=== PATIENT | male | born 1965 | race Caucasian/White ===

== ENCOUNTER 2017-01-28 11:00 | Emergency (ER) | payer BC ==
[~2017-01-28] VITALS: Ht 182.9 cm; Wt 80.2 kg
[2017-01-28 11:05] VITALS: TEMP 36.6; Ht 182.9 cm; Wt 80.2 kg
[2017-01-28] MEDS ORDERED: ONDANSETRON INJ 2 MG/ML 2 ML VIAL IV STA (11:25)
[2017-01-28] MEDS ORDERED: MoRPHine SULFATE 4 MG/ML 1 ML CARP\\VIAL IV PRN (11:30)
[2017-01-28] MEDS ORDERED: SODIUM CHLORIDE 0.9% 1000ML 1,000 ML IV ONE (11:30)
[2017-01-28] MEDS ORDERED: OPTIRAY 320 IV PRN (11:45)
[2017-01-28 12:09] LABS: URINE APPEARANCE CLEAR (CLEAR); URINE BILIRUBIN NEG (NEG); URINE COLOR YELLOW; URINE NITRITE NEG (NEG); URINE PH 6.5 (4.5-7.5); URINE SPECIFIC GRAVITY 1.011 (1.000-1.030); UROBILINOGEN NEG (NEG); ZZUR CULT IF INDIC CLEAN CATCH NO
[2017-01-28 12:27] LABS: MANUAL MICROSCOPIC REQUIRED? NO; REVIEW REQ? NO
[2017-01-28 12:33] LABS: BUN/CREATININE RATIO 11.8 (10-20); CALCIUM 9.4 mg/dl (8.5-10.1); CREATININE 1.2 mg/dl (0.60-1.40); POTASSIUM 4.3 mmol/L (3.5-5.1)
[2017-01-28 12:35] LABS: ALB/GLOB RATIO 1.2 (0.9-2)
[2017-01-28 13:02] LABS: BASO % 0.7 %; BASO ABS # 0.04 K/uL (0-0.2); COMPLETE YES; EOS % 3.6 %; HEMATOCRIT 50.2 % (42-52); IG% 0.2 %; LYMPH % 30.8 %; LYMPH ABS # 1.73 K/uL (1.2-3.4); MEAN CELL VOLUME 90.3 fL (80-100); MEAN CORPUSCULAR HGB CONC 35.5 g/dl (32-36); MEAN PLATELET VOLUME 9.5 fL (7.4-10.4); MONO % 9.3 %; NEUT % 55.4 %; PLATELET COUNT 261 K/uL (130-400); RED BLOOD COUNT 5.56 M/uL (4.7-6.1); WHITE BLOOD COUNT 5.62 K/uL (4.8-10.8)
--- NOTE | 2017-01-28 14:21 | DIAGNOSTIC IMAGING REPORT ---
ABDOMEN AND PELVIS CT WITH IV AND ORAL CONTRAST CT DOSE: 305.67 mGy.cm HISTORY: Right lower quadrant abdominal pain. TECHNIQUE: Multiaxial CT images of the abdomen and pelvis were performed following the use of intravenous and oral contrast. COMPARISON STUDY: None. FINDINGS: The lung bases are clear. The liver, spleen, gallbladder, pancreas, left kidney, and adrenal glands are within normal limits. No bowel wall thickening or obstruction. Normal appendix. A few colonic diverticula. No suspicious lytic or blastic osseous lesions. There is a 4 cm cyst within the upper pole the right kidney. No hydronephrosis. The bladder is unremarkable. IMPRESSION: 1. Normal appendix. 2. No bowel wall thickening or obstruction. 3. Colonic diverticulosis. 4. A 4 cm right renal cyst. Electronically signed by: Kang Liz M.D. 01/28/2017 2:18 PM Dictated Date/Time: 01/28/2017 2:11 PM
[2017-01-28 15:23] VITALS: BP 124/76; PULSE 70; O2SAT 98
--- NOTE | 2017-01-29 07:28 | EMERGENCY ROOM VISIT NOTE ---
History First contact with patient: 11:15 Chief Complaint: ABDOMINAL PAIN Stated Complaint: ABD. PAIN Nursing Triage Summary: Pt presents with RLQ pain that woke him from sleep at 0200. Denies n/v/d. History of Present Illness The patient is a 51 year old male who presents to the Emergency Room with complaints of right lower quadrant abdominal pain that was noted at 2 AM when he awoke from sleep. The patient does not have nausea, vomiting, or diarrhea. He has not had dysuria, hematuria, or flank pain. The patient is usually healthy and does not have a history of abdominal surgeries. No fever or chills. No chest pain or upper abdominal pain. The patient has not taken anything [id number] for his symptoms and has had decreased appetite. He rates his discomfort an 8/10. Review of Systems More than 10 systems were reviewed and otherwise negative with the exception of history of present illness. Past Medical/Surgical History No chronic medical disease Family History No pertinent family history Social History Smoking Status: Never Smoker Housing Status: lives with family Current/Historical Medications No Active Prescriptions or Reported Meds Allergies Coded Allergies: No Known Allergies (Unverified , 01/28/17) Physical Exam Vital Signs Date Time Temp Pulse Resp B/P Pulse Ox O2 Delivery O2 Flow Rate FiO2 01/28/17 15:23 70 18 124/76 98 01/28/17 14:42 74 16 146/92 97 Room Air 01/28/17 12:40 67 16 142/91 100 Room Air 01/28/17 11:05 36.6 69 18 152/92 98 Room Air Pain Rating (0-10): 4.0 Physical Exam VITALS: Vitals are noted on the nurse's note and reviewed by myself. Vital signs stable. GENERAL: Well-developed, well-nourished, white male, who is in no acute distress and resting comfortably. Patient is cooperative with the examination. HEAD: Normocephalic atraumatic. HEART: Regular rate and rhythm without murmurs gallops or rubs. LUNGS: Clear to auscultation bilaterally without wheezes, rales or rhonchi. No retractions or accessory muscle use. ABDOMEN: Positive normal bowel sounds x 4. Soft with positive right lower quadrant tenderness on palpation. No rebound or guarding. No CVA tenderness. MUSCULOSKELETAL: No muscle atrophy, erythema, or edema noted. Full range of motion without joint tenderness in all extremities. Medical Decision & Procedures ER Provider Diagnostic Interpretation: ABDOMEN AND PELVIS CT WITH IV AND ORAL CONTRAST CT DOSE: 305.67 mGy.cm HISTORY: Right lower quadrant abdominal pain. TECHNIQUE: Multiaxial CT images of the abdomen and pelvis were performed following the use of intravenous and oral contrast. COMPARISON STUDY: None. FINDINGS: The lung bases are clear. The liver, spleen, gallbladder, pancreas, left kidney, and adrenal glands are within normal limits. No bowel wall thickening or obstruction. Normal appendix. A few colonic diverticula. No suspicious lytic or blastic osseous lesions. There is a 4 cm cyst within the upper pole the right kidney. No hydronephrosis. The bladder is unremarkable. IMPRESSION: 1. Normal appendix. 2. No bowel wall thickening or obstruction. 3. Colonic diverticulosis. 4. A 4 cm right renal cyst. Laboratory Results 01/28/17 11:40 Red Blood Count 5.56, Mean Corpuscular Volume 90.3, Mean Corpuscular Hemoglobin 32.0, Mean Corpuscular Hemoglobin Concent 35.5, Mean Platelet Volume 9.5, Neutrophils (%) (Auto) 55.4, Lymphocytes (%) (Auto) 30.8, Monocytes (%) (Auto) 9.3, Eosinophils (%) (Auto) 3.6, Basophils (%) (Auto) 0.7, Neutrophils # (Auto) 3.12, Lymphocytes # (Auto) 1.73, Monocytes # (Auto) 0.52, Eosinophils # (Auto) 0.20, Basophils # (Auto) 0.04 01/28/17 11:40 Test 01/28/17 11:40 White Blood Count 5.62 K/uL (4.8-10.8) Red Blood Count 5.56 M/uL (4.7-6.1) Hemoglobin 17.8 g/dL (14.0-18.0) Hematocrit 50.2 % (42-52) Mean Corpuscular Volume 90.3 fL (80-100) Mean Corpuscular Hemoglobin 32.0 pg (25-34) Mean Corpuscular Hemoglobin Concent 35.5 g/dl (32-36) Platelet Count 261 K/uL (130-400) Mean Platelet Volume 9.5 fL (7.4-10.4) Neutrophils (%) (Auto) 55.4 % Lymphocytes (%) (Auto) 30.8 % Monocytes (%) (Auto) 9.3 % Eosinophils (%) (Auto) 3.6 % Basophils (%) (Auto) 0.7 % Neutrophils # (Auto) 3.12 K/uL (1.4-6.5) Lymphocytes # (Auto) 1.73 K/uL (1.2-3.4) Monocytes # (Auto) 0.52 K/uL (0.11-0.59) Eosinophils # (Auto) 0.20 K/uL (0-0.5) Basophils # (Auto) 0.04 K/uL (0-0.2) RDW Standard Deviation 41.4 fL (36.4-46.3) RDW Coefficient of Variation 12.4 % (11.5-14.5) Immature Granulocyte % (Auto) 0.2 % Immature Granulocyte # (Auto) 0.01 K/uL (0.00-0.02) Urine Color YELLOW Urine Appearance CLEAR (CLEAR) Urine pH 6.5 (4.5-7.5) Urine Specific Webber 1.011 (1.000-1.030) Urine Protein NEG (NEG) Urine Glucose (UA) NEG (NEG) Urine Ketones NEG (NEG) Urine Occult Blood NEG (NEG) Urine Nitrite NEG (NEG) Urine Bilirubin NEG (NEG) Urine Urobilinogen NEG (NEG) Urine Leukocyte Esterase NEG (NEG) Anion Gap 4.0 mmol/L (3-11) Est Creatinine Clear Calc Drug Dose 81.7 ml/min Estimated GFR () 81.8 Estimated GFR (Non- 70.6 BUN/Creatinine Ratio 11.8 (10-20) Calcium Level 9.4 mg/dl (8.5-10.1) Total Bilirubin 1.6 mg/dl (0.2-1) Aspartate Amino Transf (AST/SGOT) 22 U/L (15-37) Alanine Aminotransferase (ALT/SGPT) 42 U/L (12-78) Alkaline Phosphatase 73 U/L (45-117) Total Protein 8.5 gm/dl (6.4-8.2) Albumin 4.6 gm/dl (3.4-5.0) Globulin 3.9 gm/dl (2.5-4.0) Albumin/Globulin Ratio 1.2 (0.9-2) Lipase 142 U/L (73-393) Medications Administered Medications (Trade) Dose Ordered Sig/Fabi Route Start Time Stop Time Status Last Admin Dose Admin Sodium Chloride (Nss 1000ml) 1,000 ml @ 999 mls/hr Q1H1M ONCE IV 01/28/17 11:30 01/28/17 12:30 DC 01/28/17 11:46 999 MLS/HR Ondansetron HCl (Zofran Inj) 4 mg NOW STAT IV 01/28/17 11:25 01/28/17 11:28 DC 01/28/17 11:48 4 MG ED Course Physical exam and history were performed. Nursing notes and EMR were reviewed. Patient appears to have right lower quadrant abdominal pain for the past several hours. He does have tenderness on palpation. Because of this IV access was established and labs were obtained. The patient was hydrated medicated as above. I did elect to perform a CT scan with IV and oral contrast as the patient is rather slender and I had concern for appendicitis. The patient blood work is as above and was reviewed. He does not have a significantly elevated white blood cell count, worsening anemia, or significant electrolyte imbalance. Lipase and transaminases are nondiagnostic. His remaining labs are nondiagnostic. CT scan does not show an acute abdominal process. On reevaluation the patient continued to have some mild lower abdominal tenderness. He certainly does not have upper abdominal tenderness or hematuria/ signs of ureteral calculi. The patient was much more comfortable after medication. I discussed the options of care with the patient. He appears stable for discharge home. His symptoms could be related to a viral or foodborne process. His symptoms could also represent a very early or evolving process. I had a lengthy discussion with the patient regarding these possibilities, and ultimately will discharge him home. He will be given a short course of Vicodin and Zofran. He is to follow up closely with his primary care physician in the next 1-2 days. He is to return is worsening. He was otherwise invited back to the ER with any new, worsening, or concerning symptoms. The chart was completed utilizing [employer] Voice [employer]ognition Software. Grammatical errors, random word insertions, pronoun errors, and incomplete sentences are an occasional consequence of this system due to software limitations, ambient noise, and hardware issues. Any formal questions or concerns about the content, text, or information contained within the body of this dictation should be directly addressed to the provider for clarification. . Medical Decision Differential diagnosis: Etiologies such as appendicitis, diverticulitis, PUD, biliary pathology, UTI, pancreatitis, obstruction, mesenteric ischemia, aortic pathology, infections, inflammatory bowel disease, renal colic, as well as others were entertained. Impression Primary Impression: Abdominal pain Departure Information Dispostion Home / Self-Care Condition GOOD Prescriptions No Active Prescriptions or Reported Meds Forms Call Back Authorization, HOME CARE DOCUMENTATION FORM, IMPORTANT VISIT INFORMATION Patient Instructions [facility] Additional Instructions You were seen and evaluated today on an emergency basis only. This is not a substitute for, or an effort to provide, complete comprehensive medical care. It is not possible to recognize and treat all injuries or illnesses in a single emergency department visit. For this reason it is recommended that you followup with your primary care physician in the next 2 to 3 days for recheck of her condition. For baseline pain relief you may alternate ibuprofen and acetaminophen every 4 hours for pain control. Take 600 mg ibuprofen (Advil) and then 4 hours later take 1000 mg acetaminophen (Tylenol). Do not take more than 3000 mg acetaminophen in a single day. You are welcome to return to the emergency department anytime with new, worsening, or concerning symptoms. Problem Qualifiers Primary Impression: Abdominal pain Abdominal location: right lower quadrant Qualified Codes: R10.31 - Right lower quadrant pain
== END 2017-01-28 15:26 | disposition home or self-care (01) ==
LOC: C.EDB 11:02 → C.EDC 15:26
DX: R10.31 Right lower quadrant pain (principal)